=== PATIENT | female | born 1960 | race African-American/Black ===

== ENCOUNTER 2021-09-07 13:59 | Outpatient (CLI) | payer MEDICARE | END 2021-09-07 14:00 | disposition home or self-care (01) | LOC: CSHWCC 13:59 | PROVIDERS: ATTEND Nurse Practitioner Family | DX: I87.312 Chronic venous hypertension (idiopathic) with ulcer of left lower extremity (principal); L97.822 Non-pressure chronic ulcer of other part of left lower leg with fat layer exposed; R60.0 Localized edema | CPT/HCPCS: 97139; G0463; 99213 ==

== ENCOUNTER 2021-09-21 09:50 | Outpatient (CLI) | payer MEDICARE | END 2021-09-21 09:51 | disposition home or self-care (01) | LOC: CSHWCC 09:50 | PROVIDERS: ATTEND Nurse Practitioner Family | DX: I87.312 Chronic venous hypertension (idiopathic) with ulcer of left lower extremity (principal); L97.822 Non-pressure chronic ulcer of other part of left lower leg with fat layer exposed; R60.0 Localized edema | CPT/HCPCS: 97139; G0463; 99213 ==

== ENCOUNTER 2022-01-08 18:23 | Emergency (ER) | payer MEDICARE ==
[2022-01-08] MEDS ORDERED: Ketorolac Tromethamine 30 MG/ML VIAL ONE (20:32)
== END 2022-01-08 20:54 | disposition home or self-care (01) ==
LOC: CSHERS 18:23
DX: M54.50 Low back pain, unspecified (principal); I10 Essential (primary) hypertension; E78.5 Hyperlipidemia, unspecified; I25.2 Old myocardial infarction
CPT/HCPCS: 96372; 99283; J1885

== ENCOUNTER 2022-08-01 22:39 | Emergency (ER) | payer OTHER, MEDICARE ==
[2022-08-01] MEDS ORDERED: Ketorolac Tromethamine 30 MG/ML VIAL ONE (23:18)
== END 2022-08-01 23:53 | disposition home or self-care (01) ==
LOC: CSHERS 22:39
DX: M25.512 Pain in left shoulder (principal); I10 Essential (primary) hypertension; E78.5 Hyperlipidemia, unspecified
CPT/HCPCS: 71045; 96372; J1885

== ENCOUNTER 2022-08-30 09:09 | Outpatient (CLI) | payer MEDICARE | END 2022-08-30 09:10 | disposition home or self-care (01) | LOC: CSHWCC 09:09 | PROVIDERS: ATTEND Nurse Practitioner Family | DX: I87.331 Chronic venous hypertension (idiopathic) with ulcer and inflammation of right lower extremity (principal); L97.812 Non-pressure chronic ulcer of other part of right lower leg with fat layer exposed; R60.0 Localized edema | CPT/HCPCS: 29581; 97139; G0463; 99213 ==